=== PATIENT | female | born 1975 | race Caucasian/White ===

== ENCOUNTER 2016-03-19 05:17 | Day surgery (SDC) | payer OTHER ==
[2016-03-18 11:24] VITALS: BMI 25.2
--- NOTE | 2016-03-19 12:36 | HP ---
History & Physical Update - History History: No Change - Physical Physical: No Change - Assessment Assessment: No Change - Plan Plan: No Change (Here for elective removal of her gallbladder)
[2016-03-19] MEDS ORDERED: INDOCYANINE GREEN 25 MG/10 ML VIAL IVPUSH ONE (12:39)
[2016-03-19] MEDS ORDERED: BUPIVACAINE HCL/PF 0.5% (5MG/ML) 10 ML VIAL ONE (12:46)
[2016-03-19] MEDS ORDERED: ROCURONIUM BROMIDE 50 MG/5 ML VIAL ONE (13:12)
[2016-03-19] MEDS ORDERED: MIDAZOLAM HCL 2 MG/2 ML SINGLE DOSE VIAL ONE (13:12)
[2016-03-19] MEDS ORDERED: PROPOFOL 20 ML ONE ×2 (13:12)
[2016-03-19] MEDS ORDERED: ceFAZolin SODIUM 1 GM VIAL IVPB ONE (13:40)
[2016-03-19] MEDS ORDERED: BUPIVACAINE HCL/PF 0.5% (5MG/ML) 10 ML VIAL IJ ONE ×2 (13:52)
[2016-03-19] MEDS ORDERED: ONDANSETRON 4 MG/2 ML VIAL IVPUSH PRN (15:17)
[2016-03-19] MEDS ORDERED: oxyCODONE HCL 5 MG TABLET PO PRN (15:17)
[2016-03-19] MEDS ORDERED: LACTATED RINGERS SOLUTION 1,000 ML IV SCH (15:30)
--- NOTE | 2016-03-19 15:32 | OP ---
Operative Note - Note: Operative Date: 03/19/16 Pre-Operative Diagnosis: Chroninc cholecystitis with cholelithiasis Operation: Robotic cholecystectomy Findings: gallbladder with stone and sludge Post-Operative Diagnosis: Same as Pre-op Surgeon: Nico Rodríguez Scholastic Aptitude Test Grader: Jaiden Herr Anesthesia: General Specimens Removed: gallbladder Estimated Blood Loss (mls): 1 Operative Report Dictated: Yes
--- NOTE | 2016-03-19 16:36 | OP ---
DATE OF OPERATION: 03/19/2016 PROCEDURE: Robotic assisted laparoscopic cholecystectomy. PREOPERATIVE DIAGNOSIS: Chronic cholecystitis with cholelithiasis. POSTOPERATIVE DIAGNOSIS: Chronic cholecystitis with cholelithiasis. SURGEON: Nico Rodríguez M.D. SUPERVISOR [employer]: Jair Matthesw ANESTHESIA: General endotracheal anesthesia. FINDINGS AND PROCEDURE: This is a 41-year-old female with chronic right upper quadrant pain radiating to the back, is aggravated by fatty meals. Preoperative ultrasound in the emergency department revealed gallbladder with gallstones and normal size common duct. On physical examination at the time had no right upper quadrant tenderness, so patient was advised elective cholecystectomy and consent was obtained after discussing the risks, benefits, and alternatives to the procedure. Patient was brought to the operating room and placed in supine position. General endotracheal anesthesia was then administered. The abdomen was prepped and draped in the usual sterile fashion. Using 0.5% Marcaine, local anesthesia was administered to proposed incision sites. The peritoneal cavity was entered using the Veress needle technique with an 8-mm umbilical incision. Pneumoperitoneum was established. An 8-mm port was inserted into the peritoneal cavity. This was followed by insertion of the 8-mm, 30-degree 3-D laparoscope, and the peritoneal cavity was carefully inspected and was noted to be free of inadvertent injury. Two 8-mm ports were inserted to the right of the umbilicus, 7 mm away from each other under direct vision. Another 8-mm scope was inserted at the left upper quadrant 7 mm away from the left umbilicus and 1 fingerbreadth above. The patient was then placed in a steep reverse Trendelenburg, left side down position. The target organ was set, and the robotic arms were docked. The prograsp foceps was inserted at the right lateral most port and a fenestrated bipolar forceps was inserted at the midclavicular port. The endo wrist hook dissector connected to monopolar cautery was inserted at the left upper quadrant port. The undersigned scrubbed out and commenced the console part of the procedure. The gallbladder fundus was grasped and retracted superiorly, and the infundibulum was grasped by the fenestrated bipolar and grasped intra-laterally to expose the hepatocystic triangle. The visceral peritoneum covering the triangle was scored and carefully dissected towards the liver bed medially and laterally. A window was created between the gallbladder and the liver to create the critical view of safety. The cystic duct was clearly visualized wit the aid of the firefly technology visualizing the cystic duct entering the gallbladder. The cystic duct was carefully isolated and skeletonized. The cystic artery was isolated as well. Three Hem-o-charli clips were applied to the cystic duct followed with dissection, leaving 2 clips at the cystic duct stump. He Hem-o-charli clips were applied to the cystic artery, followed by cauterizing the distal artery with the fenestrated bipolar. This was then transected leaving 2 clips at the cystic artery stump. The gallbladder was resected from its bed in antegrade fashion using the EndoWrist dissector connected to monopolar cautery. When this was completed, the gallbladder was placed in Endobag and extracted via the left upper quadrant port. The instruments were removed and the robotic arms were undocked. The pneumoperitoneum was evacuated , and the ports were removed. The wounds were closed with subcuticular Biosyn 4 sutures, reinforced with Dermabond. The patient was successfully extubated and transferred to the post-anesthesia care unit in satisfactory condition. Estimated blood loss was about 1 mL. Wound class clean-contaminated. The patient received a gram of Ancef prior to starting the procedure. Lisa [id number] MTDD
[2016-03-19 17:56] VITALS: TEMP 98.4
[2016-03-19 19:36] VITALS: BP 117/70; PULSE 83
--- NOTE | 2016-03-21 13:09 | PATH ---
Surgical Pathology Report Patient Name: GIO BANGURA [facility]. Rec. #: [id number] /Age/Gender: 1975 (Age: 41) / F Account: [id number] Location: [facility] SUR[facility]ICAL Taken: 03/19/2016 Received: 03/20/2016 Reported: 03/21/2016 Physicians: Nico Rodríguez M.D. Specimen(s) Received GALLBLADDER Clinical History Cholelithiasis Final Diagnosis GALLBLADDER, CHOLECYSTECTOMY: CHRONIC CHOLECYSTITIS, CHOLELITHIASIS AND CHOLESTEROLOSIS. Electronically Signed Rodrigo Mccollum M.D. Gross Description Received in formalin, labeled "gallbladder" is a 6.3 x 2.0 x 1.2 cm gallbladder with a 0.2 cm in length portion of cystic duct attached. The outer surface is pantoja-green with a focal defect and varies from smooth to shaggy. The lumen contains green, tenacious bile as well as 3 pantoja, irregular choleliths averaging 0.1 cm in greatest dimension. There is an additional 0.8 cm greatest dimension pantoja, irregular cholelith separately received within the same container. The mucosa is dark green with gold cholesterol stippling. The wall of the gallbladder averages 0.1 cm in thickness. Airplane Fueler sections are submitted in one cassette. 03/20/201603/20/2016
== END 2016-03-19 19:39 | disposition home or self-care (01) ==
LOC: JASU-SURG 05:17
PROVIDERS: ATTEND Surgery
PROC: 8E0W4CZ Robotic Assisted Procedure of Trunk Region, Percutaneous Endoscopic Approach (ICD-10-PCS; 2016-03-19)
PROC: 0FT44ZZ Resection of Gallbladder, Percutaneous Endoscopic Approach (ICD-10-PCS; principal; 2016-03-19 11:30)
DX: K80.10 Calculus of gallbladder with chronic cholecystitis without obstruction (principal)
CPT/HCPCS: 47562; S2900; 88304-TC; 94760